=== PATIENT | male | born 1985 | race Caucasian/White ===

== ENCOUNTER 2023-04-25 23:33 | Emergency (ER) | payer OTHER ==
[2023-04-26 00:14] VITALS: BP 143/89; O2SAT 99
--- NOTE | 2023-04-26 00:20 | ED Physician Documentation ---
PD HPI HEENT - Stated complaint Stated Complaint: RT EAR PX - Chief complaint Chief Complaint: Heent - History obtained from History obtained from: Patient - Additional information Additional information: 38yM presents with R ear pain X 1 day. worse with pulling on it. denies fever, uri symptoms. Review of Systems Constitutional: denies: Fever, Chills Eyes: denies: Loss of vision Ears: reports: Ear pain. denies: Loss of hearing, Drainage/discharge, Tinnitus/ringing Nose: denies: Rhinorrhea / runny nose, Congestion Throat: denies: Sore throat Cardiac: denies: Chest pain / pressure Respiratory: denies: Dyspnea, Cough PD PAST MEDICAL HISTORY - Past Medical History Past Medical History: No - Past Surgical History Past Surgical History: No - Present Medications Home Medications: Ambulatory Orders Medication Instructions Recorded Confirmed Amoxicillin 875 mg PO BID #10 tablet 04/26/23 Ofloxacin [Ofloxacin Otic drops] 5 ml OT Q4H 7 Days #5 ml 04/26/23 - Allergies Allergies/Adverse Reactions: Allergies Allergy/AdvReac Type Severity Reaction Status Date / Time No Known Drug Allergies Allergy Verified 04/26/23 00:05 - Social History Does the pt smoke?: No Smoking Status: Never smoker Does the pt drink ETOH?: Yes ETOH Use: Wine, Beer, Liquor Does the pt have substance abuse?: No - Immunizations Immunizations are current?: Yes - POLST Patient has POLST: No PD ED PE NORMAL - Vitals Vital signs reviewed: Yes - General General: Alert and oriented X 3, No acute distress, Well developed/nourished - HEENT HEENT: Other (Right otitis media and otitis externa on exam. Left TM clear) Results - Vitals Vitals: Vital Signs - 24 hr 04/26/23 00:02 Temperature 36.4 C L Heart Rate 72 Respiratory 16 Rate Blood Pressure 143/89 H O2 Saturation 99 Oxygen O2 Source Room air PD Medical Decision Making - ED course ED course: 38-year-old man presents with right otitis media and otitis externa. Antibiotic drops and pills sent to pharmacy. Return precautions given. Plan to follow-up with primary care provider. Departure - Departure Disposition: 01 Home, Self Care Clinical Impression: Ear pain, right, Ear infection Condition: Stable Prescriptions: Amoxicillin 875 mg PO BID #10 tablet Ofloxacin [Ofloxacin Otic drops] 5 ml OT Q4H 7 Days #5 ml Comments: You were seen in the emergency department for Ear infection. Antibiotic drops and pills were prescribed and a prescription was printed for you today. Please follow-up with your primary care provider and return to the emergency department if you have any new or worsening symptoms or other concerns. Forms: PCP List Discharge Date/Time: 04/26/23 00:23
== END 2023-04-26 00:23 | disposition home or self-care (01) ==
LOC: ED 23:33
DX: H60.91 Unspecified otitis externa, right ear (principal); H66.91 Otitis media, unspecified, right ear
CPT/HCPCS: 99281; 99283